=== PATIENT | male | born 1990 | race African-American/Black ===

== ENCOUNTER 2016-10-15 20:49 | Emergency (ER) | payer MEDICAID ==
[~2016-10-15] VITALS: Ht 180.3 cm; Wt 90.0 kg
[2016-10-15] MEDS ORDERED: SODIUM CHLORIDE 0.9% 1,000 ML IV SCH (22:04)
[2016-10-15] MEDS ORDERED: DIPHENHYDRAMINE 50MG/ML VIAL IV ONE (22:15)
[2016-10-15] MEDS ORDERED: METHYLPREDNISOLONE SOD SUCC 125 MG/2 ML VIAL IV ONE (22:15)
[2016-10-15] MEDS ORDERED: FAMOTIDINE 20MG/2ML VIAL IV ONE (22:15)
[2016-10-15] MEDS ORDERED: ALBUTEROL (0.083%) 2.5MG/3ML NEB HHN STA (22:18)
[2016-10-15] MEDS ORDERED: KETOROLAC 30MG/ML VIAL IV ONE (22:45)
[2016-10-15 23:08] LABS: EOSINOPHILS % 9.7 % (0.0-5.0); HEMOGLOBIN. 14.6 g/dL (14.0-18.0); MEAN CORPUSCULAR HEMOGLOBIN 29.5 pg (28.0-32.0); MEAN CORPUSCULAR VOLUME 89.1 fL (80.0-94.0); MEAN PLATELET VOLUME 9.3 fl (7.4-10.4); MONOCYTES % 8.3 % (2.0-8.0); PLATELET 205 x1000/uL (130-400); RED BLOOD CELL COUNT 4.93 mill/uL (4.7-6.1); RED CELL DISTRIBUTION WIDTH 13.2 % (11.6-14.6)
[2016-10-15 23:12] LABS: CHLORIDE 111 mEq/L (98-107)
[2016-10-15 23:16] LABS: CARBON DIOXIDE 22 mEq/L (21-32)
[2016-10-16] MEDS ORDERED: ACETAMINOPHEN 325MG TABLET PO ONE
[2016-10-16 00:37] VITALS: BP 145/81
== END 2016-10-16 01:13 | disposition home or self-care (01) ==
LOC: ER 20:50
DX: L23.9 Allergic contact dermatitis, unspecified cause (principal); R03.0 Elevated blood-pressure reading, without diagnosis of hypertension; J39.2 Other diseases of pharynx; Z90.49 Acquired absence of other specified parts of digestive tract
CPT/HCPCS: 36415; 71010; 80053; 85025; 94640; 96361; 96374; 96375; 99285; J1200; J1885; J2930; J3490; J7030; J7611